=== PATIENT | male | born 1970 | race American Indian/Alaskan Native ===

== ENCOUNTER 2016-09-04 07:45 | Inpatient (IN) | payer OTHER ==
[2016-09-04] MEDS ORDERED: MAGNESIUM SULFATE 2GM/50ML 2 GM/50 ML BAG IV ONE ×2 (07:58→08:00)
[2016-09-04] MEDS ORDERED: PROVENTIL IH ONE ×3 (08:12→11:21)
[2016-09-04 08:35] LABS: Basophils % (Auto) 0.7 % (0.0-1.8); Eosinophils % (Auto) 5.9 % (0.0-4.3); Hematocrit 41.4 % (35.5-45.6); Hemoglobin 14.3 gm/dl (11.8-15.2); Mean Corpuscular HGB Conc 35 % (32-34); Mean Corpuscular Hemoglobin 33 pg (28-32); Mean Corpuscular Volume 96 fl (84-94); Platelet Count 168 K/mm3 (140-440); Red Blood Count 4.33 M/mm3 (3.65-5.03); Red Cell Distribution Width 15.4 % (13.2-15.2); White Blood Count 4.7 K/mm3 (4.5-11.0)
--- NOTE | 2016-09-04 08:41 | XRay Report ---
ROUTINE CHEST, TWO VIEWS: HISTORY: Shortness of breath. The trachea, heart, mediastinal contour, lung wen and bony thorax are unremarkable. IMPRESSION: Unremarkable chest x-ray.
[2016-09-04 08:55] LABS: Anion Gap 17 mmol/L; BUN/Creatinine Ratio 14.44; Blood Urea Nitrogen 13 mg/dL (9-20); Calcium 9.2 mg/dL (8.4-10.2); Carbon Dioxide 28 mmol/L (22-30); Chloride 96.5 mmol/L (98-107); Glucose 107 mg/dL (75-100); Potassium 4.3 mmol/L (3.6-5.0); Sodium 137 mmol/L (137-145)
--- NOTE | 2016-09-04 09:10 | Emergency Department Report ---
ED Shortness of Breath HPI - General Chief Complaint: Adult Asthma Stated Complaint: REX Time Seen by Provider: 09/04/16 08:49 Source: patient, EMS Mode of arrival: Stretcher Limitations: No Limitations - History of Present Illness Initial Comments: 46-year-old male presents to the emergency department via EMS complaining of difficulty breathing. Patient states he's been having shortness of breath for the past 2 days it has progressively gotten worse. Patient states he has been using his albuterol nebulizer with no relief. Patient states that he normally takes 20 mg of prednisone daily. He states he increased this to 40 mg this morning. Patient was given 1 nebulizer treatment by EMS and IV Solu-Medrol. Patient is also complaining of left sided chest pain. This pain started this morning. Patient describes an achy pain that does not radiate. This pain is worse with deep inspiration. Patient reports a history of asthma and endotracheal intubation secondary to asthma. This intubation occurred at the age of 17. He has had multiple inpatient admissions due to his asthma. There are no other complaints. MD Complaint: "asthma attack" -: Gradual, days(s) (2) Severity: moderate Quality: aching Consistency: constant Improves With: nothing Worsens With: inspiration Known History Of: asthma Associated Symptoms: chest pain, pain with inspiration Treatments Prior to Arrival: bronchodilator, other (IV steroids) - Related Data Home Oxygen Therapy: No Home Medications Medication Instructions Recorded Confirmed Last Taken Albuterol Sulfate [Ventolin HFA] 2 puff IH Q4H PRN 09/04/16 09/04/16 Unknown predniSONE [Deltasone] 20 mg PO QDAY 09/04/16 09/04/16 Unknown Allergies Allergy/AdvReac Type Severity Reaction Status Date / Time ciprofloxacin [From Cipro] Allergy Hives Verified 09/04/16 08:09 ciprofloxacin HCl Allergy Hives Verified 09/04/16 08:09 [From Cipro] ED Review of Systems ROS: Stated complaint: REX Other details as noted in HPI Comment: All other systems reviewed and negative Respiratory: shortness of breath, wheezing Cardiovascular: chest pain ED Past Medical Hx - Past Medical History Previous Medical History?: Yes Hx Asthma: Yes (hx intubation) - Surgical History Past Surgical History?: No - Family History Family history: no significant - Social History Smoking Status: Never Smoker Substance Use Type: Alcohol - Medications Home Medications: Home Medications Medication Instructions Recorded Confirmed Last Taken Type Albuterol Sulfate [Ventolin HFA] 2 puff IH Q4H PRN 09/04/16 09/04/16 Unknown History predniSONE [Deltasone] 20 mg PO QDAY 09/04/16 09/04/16 Unknown History ED Physical Exam - General Limitations: No Limitations General appearance: alert, in no apparent distress - Head Head exam: Present: atraumatic, normocephalic - Eye Eye exam: Present: normal appearance, PERRL, EOMI - ENT ENT exam: Present: normal exam, normal orophraynx, mucous membranes moist - Neck Neck exam: Present: normal inspection, full ROM. Absent: tenderness - Respiratory Respiratory exam: Present: wheezes (moderate diffuse posterior bilateral), chest wall tenderness (mild tenderness to palpation of the left lower anterior lateral chest wall). Absent: respiratory distress - Cardiovascular Cardiovascular Exam: Present: regular rate, normal rhythm, normal heart sounds - GI/Abdominal GI/Abdominal exam: Present: soft, normal bowel sounds. Absent: distended, tenderness - Extremities Exam Extremities exam: Present: normal inspection, full ROM. Absent: tenderness - Back Exam Back exam: Present: normal inspection, full ROM. Absent: tenderness - Neurological Exam Neurological exam: Present: alert, oriented X3. Absent: motor sensory deficit - Skin Skin exam: Present: warm, dry, intact ED Course Vital Signs 09/04/16 09/04/16 09/04/16 07:50 07:54 08:00 Temperature 98.4 F Pulse Rate 74 74 79 Pulse Rate [ Anterior Bilateral Throughout] Pulse Rate [ Bilateral Throughout] Respiratory 20 16 22 Rate Respiratory Rate [Anterior Bilateral Throughout] Respiratory Rate [Bilateral Throughout] Blood Pressure 153/95 153/99 O2 Sat by Pulse 95 94 95 Oximetry 09/04/16 09/04/16 09/04/16 08:05 08:16 08:50 Temperature Pulse Rate Pulse Rate [ 756 H Anterior Bilateral Throughout] Pulse Rate [ 68 Bilateral Throughout] Respiratory 20 Rate Respiratory 20 Rate [Anterior Bilateral Throughout] Respiratory 18 Rate [Bilateral Throughout] Blood Pressure O2 Sat by Pulse 95 Oximetry 09/04/16 09/04/16 09/04/16 09:00 09:10 10:00 Temperature Pulse Rate 71 Pulse Rate [ Anterior Bilateral Throughout] Pulse Rate [ 82 Bilateral Throughout] Respiratory 14 Rate Respiratory Rate [Anterior Bilateral Throughout] Respiratory 18 Rate [Bilateral Throughout] Blood Pressure 150/99 159/98 O2 Sat by Pulse 97 95 Oximetry 09/04/16 09/04/16 09/04/16 11:00 11:33 11:43 Temperature Pulse Rate Pulse Rate [ Anterior Bilateral Throughout] Pulse Rate [ 91 H 90 Bilateral Throughout] Respiratory Rate Respiratory Rate [Anterior Bilateral Throughout] Respiratory 18 18 Rate [Bilateral Throughout] Blood Pressure 142/91 O2 Sat by Pulse 96 Oximetry - Reevaluation(s) Reevaluation #1: 09/04/16 13:03 After a total of 25 mg of albuterol and 2 g of magnesium, the patient does have improved air movement on lung auscultation. However, he still has significant wheezing. Lab and imaging results reviewed and discussed with the patient. Patient is to be admitted by the hospitalist. ED Medical Decision Making - Lab Data Result diagrams: 09/04/16 08:25 09/04/16 08:25 - EKG Data -: EKG Interpreted by Me EKG shows normal: sinus rhythm, intervals, ST-T waves Rate: normal - EKG Data When compared to previous EKG there are: previous EKG unavailable Interpretation: LVH, other (LAFB) - Radiology Data Radiology results: report reviewed Chest x-ray shows no acute cardiopulmonary abnormality. - Differential Diagnosis asthma exacerbation Critical care attestation.: If time is entered above; I have spent that time in minutes in the direct care of this critically ill patient, excluding procedure time. ED Disposition Clinical Impression: Asthma with acute exacerbation Qualifiers: Asthma severity: severe persistent Qualified Code(s): J45.51 - Severe persistent asthma with (acute) exacerbation Disposition: OP ADMITTED IP TO THIS HOSP Is pt being admited?: Yes Condition: Stable Referrals: PRIMARY CARE, [Primary Care Provider] - 3-5 Days Time of Disposition: 13:04
--- NOTE | 2016-09-04 13:08 | Admit Criteria Form ---
Admission Criteria Documentation: ASTHMA Clinical Indications for Admission to Inpatient Care (Place 'X' for any and all applicable criteria): Admission is indicated for ANY ONE of the following (1)(2)(3)(4)(5): [ ]I. Absent or markedly diminished breath sounds (silent chest) [ ]II. Oxygen saturation < 92% [ ]III. PaCO2 = / > 42 mm Hg (5.6 kPa) [ ]IV. Peak expiratory flow rate < 40% of predicted or personal best after treatment. [ ]V. Peak expiratory flow rate < 33% of predicted or personal before after treatment [ ]. Change in mental status [ ]VII. Ventilatory support required [ ]VIII. PaO2 < 60 mm Hg (8.0 kPa) [ ]IX. Cyanosis [ ]X. Cardiac dysrhythmia (e.g., bradycardia) [ ]XI. Hemodynamic instability [ ]XII. Radiographic evidence of complication requiring inpatient treatment (e.g., pneumonia, pneumothorax) [X ]XIII. Inpatient admission required rather than observation care (also use Asthma: Observation Care guideline as appropriate) because of ANY ONE of the following: [ X]a) Respiratory finding that is severe or persistent (eg, dyspnea, tachypnea, accessory muscle use) [ ]b) Airflow measurements less than 60% of predicted or personal best that persist (e.g., over 24 hours) or worsen despite treatments [ ]c) Supplemental oxygen or respiratory treatments for over 24 hours that are performable only in acute inpatient setting [ ]d) Other condition, treatment or monitoring requiring inpatient admission. Extended stay beyond goal length of stay may be needed for (26)(27)(28): [ ]a) Severe respiratory failure (23) (29) (30) [ ]b) Secondary causes and complications (25) [ ]c) Status asthmaticus [ ]d) Chronic obstructive asthma [ ]e) Older patients (29) [ ]f) Slow resolution [ ]g) Clinically significant exacerbation of comorbidities (eg, santiago. heart failure, atrial fibrillation) The original [employer] content created by [employer] has been revised. The portions of the content which have been revised are identified through the use of italic text or in bold, and [employer] has neither reviewed nor approved the modified material. All other unmodified content is copyright [employer] Please see references footnoted in the original [facility] edition 2016 Admission Criteria Met: Yes
[2016-09-04] MEDS ORDERED: DUONEB 0.5 MG-3 MG/3 ML SOLN IH PRN (14:44)
[2016-09-04] MEDS ORDERED: TYLENOL PO PRN (14:44)
--- NOTE | 2016-09-04 14:44 | History and Physical Report ---
History of Present Illness Chief complaint: I cant breathe History of present illness: 46 YO Male with Asthma, presents to ED for evaluation. Pt states that he has been experiencing shortness of breath for the past 2 days, with worsening symptoms over the past 24 hours. Pt Patient states he has been using his albuterol nebulizer, and oral steroids with no relief. Patient is also complaining of chest discomfort associated with deep breathing. Pt denies fever , chills, CP, Palpitations, NVD, hemoptysis, prolonged travel/immobility, individual/family history of DVT/PE, or recent ill contacts. Past History Past Medical History: other (asthma) Past Surgical History: No surgical history, Other (reviewed) Social history: single, Lives alone. denies: smoking, alcohol abuse, prescription drug abuse Family history: hypertension Medications and Allergies Allergies Allergy/AdvReac Type Severity Reaction Status Date / Time ciprofloxacin [From Cipro] Allergy Hives Verified 09/04/16 08:09 ciprofloxacin HCl Allergy Hives Verified 09/04/16 08:09 [From Cipro] Home Medications Medication Instructions Recorded Confirmed Last Taken Type Albuterol Sulfate [Ventolin HFA] 2 puff IH Q4H PRN 09/04/16 09/04/16 Unknown History predniSONE [Deltasone] 20 mg PO QDAY 09/04/16 09/04/16 Unknown History Review of Systems All systems: negative Respiratory: shortness of breath Exam - Constitutional Vitals: Temp Pulse Resp BP Pulse Ox 98.4 F 87 16 140/104 96 09/04/16 07:50 09/04/16 13:30 09/04/16 13:30 09/04/16 13:00 09/04/16 13:00 General appearance: Present: no acute distress, well-nourished - EENT Eyes: Present: PERRL ENT: hearing intact, clear oral mucosa - Neck Neck: Present: supple, normal ROM - Respiratory Respiratory effort: normal Respiratory: bilateral: diminished - Cardiovascular Heart Sounds: Present: S1 & S2. Absent: rub, click - Extremities Extremities: pulses symmetrical, No edema Peripheral Pulses: within normal limits - Abdominal General gastrointestinal: Present: soft, non-tender, non-distended, normal bowel sounds Male genitourinary: Present: normal - Integumentary Integumentary: Present: clear, warm, dry - Musculoskeletal Musculoskeletal: gait normal, strength equal bilaterally - Psychiatric Psychiatric: appropriate mood/affect, intact judgment & insight - Neurologic Neurologic: CNII-XII intact, moves all extremities Results - Labs CBC & Chem 7: 09/04/16 08:25 09/04/16 08:25 Labs: Abnormal lab results 09/04/16 09/04/16 Range/Units 08:25 08:25 MCV 96 H (84-94) fl MCH 33 H (28-32) pg MCHC 35 H (32-34) % RDW 15.4 H (13.2-15.2) % Eos % (Auto) 5.9 H (0.0-4.3) % Lymph # 0.9 L (1.2-5.4) K/mm3 Chloride 96.5 L (98-107) mmol/L Glucose 107 H (75-100) mg/dL Assessment and Plan - Patient Problems (1) Acute respiratory failure with hypoxemia Current Visit: Yes Status: Acute Plan to address problem: Supplemental oxygen, nebs, pulmonary toilet, incintive spirometry (2) Asthma with acute exacerbation Current Visit: Yes Status: Acute Qualifiers: Asthma severity: severe persistent Qualified Code(s): J45.51 - Severe persistent asthma with (acute) exacerbation Plan to address problem: ASthma protocol: supplemental oxygen, nebs, supportive care, NIPPV as clinically indicated, steroids, serial lung exam, pulse oximetry (3) Acute bronchitis Current Visit: Yes Status: Acute Qualifiers: Bronchitis organism: B Plan to address problem: IV steroids, supportive care, serial physical exam. (4) DVT prophylaxis Current Visit: Yes Status: Acute
[2016-09-04] MEDS ORDERED: PROVENTIL IH PRN (14:55)
[2016-09-04] MEDS ORDERED: ZITHROMAX 500 MG in NACL 0.9% 250ML 250 ML IV ONE (16:00)
--- NOTE | 2016-09-05 11:47 | Progress Note ---
Assessment and Plan Assessment and plan: Patient is a 46-year-old man with a history of severe refractory asthma on 20 mg oral steroids/day who presents with worsening shortness of breath about not responding to outpatient therapy. He has been intubated for asthma exacerbation in the past. - Severe refractory asthma, acute on chronic: Consulted pulmonology, add inhaled glucocorticoids - Acute bronchitis related to above History Interval history: Patient seen and examined. Follow up on shortness of breath which is still present. He still feels tight with breathing with ESTEVES. He has severe daily asthma attack not responding to his home medication. He's on 20 mg a day of prednisone with albuterol inhaler. He has been intubated for asthma in the past. He also underwent GI procedure in [place] to evaluate GERD related asthma. Patient is visiting from [place]. 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 Overnight uneventful. No cp, n/v or severe headaches. Imaging, old records, testing, labs, nursing notes reviewed. Plan discussed with patient. Hospitalist Physical - Physical exam Narrative exam: GEN: Ill appearing mild increase use of accessory muscle, not on oxygen, pulse ox 98% room air, NAD, AWAKE, ALERT, ORIENTATED 3 HEENT: NCAT, PERRL, EOMI, OP CLEAR NECK: SUPPLE, NO THYROMEGALY, NO JVD, NO LAD CVS: RRR, NORMAL S1S2 LUNGS/CHEST: Diffuse Bilateral coarse rhonchi, diminished breath sounds bilaterally, NORMAL CHEST EXPANSION B, reduced AIR ENTRY B ABD: SOFT NTND, GBS, NO REBOUND OR GUARDING EXT/SKIN: NO SIGNIFICANT EDEMA OR RASH MSK: FROM X 4 EXTREMITIES NEURO: CN 2-12 GROSSLY INTACT, NO new FOCAL DEFICITS PSY: CALM - Constitutional Vitals: Temp Pulse Resp BP Pulse Ox 98.4 F 81 16 138/90 95 09/05/16 07:16 09/05/16 07:16 09/05/16 07:16 09/05/16 07:16 09/05/16 07:58 General appearance: Present: no acute distress, well-nourished Results - Labs CBC & Chem 7: 09/04/16 08:25 09/04/16 08:25 Labs: Laboratory Last Values WBC 4.7 K/mm3 (4.5-11.0) 09/04/16 08:25 RBC 4.33 M/mm3 (3.65-5.03) 09/04/16 08:25 Hgb 14.3 gm/dl (11.8-15.2) 09/04/16 08:25 Hct 41.4 % (35.5-45.6) 09/04/16 08:25 MCV 96 fl (84-94) H 09/04/16 08:25 MCH 33 pg (28-32) H 09/04/16 08:25 MCHC 35 % (32-34) H 09/04/16 08:25 RDW 15.4 % (13.2-15.2) H 09/04/16 08:25 Plt Count 168 K/mm3 (140-440) 09/04/16 08:25 Lymph % (Auto) 19.7 % (13.4-35.0) 09/04/16 08:25 [place] % (Auto) 7.0 % (0.0-7.3) 09/04/16 08:25 Eos % (Auto) 5.9 % (0.0-4.3) H 09/04/16 08:25 Baso % (Auto) 0.7 % (0.0-1.8) 09/04/16 08:25 Lymph # 0.9 K/mm3 (1.2-5.4) L 09/04/16 08:25 [place] # 0.3 K/mm3 (0.0-0.8) 09/04/16 08:25 Eos # 0.3 K/mm3 (0.0-0.4) 09/04/16 08:25 Baso # 0.0 K/mm3 (0.0-0.1) 09/04/16 08:25 Seg Neutrophils % 66.7 % (40.0-70.0) 09/04/16 08:25 Seg Neutrophils # 3.1 K/mm3 (1.8-7.7) 09/04/16 08:25 Sodium 137 mmol/L (137-145) 09/04/16 08:25 Potassium 4.3 mmol/L (3.6-5.0) 09/04/16 08:25 Chloride 96.5 mmol/L (98-107) L 09/04/16 08:25 Carbon Dioxide 28 mmol/L (22-30) 09/04/16 08:25 Anion Gap 17 mmol/L 09/04/16 08:25 BUN 13 mg/dL (9-20) 09/04/16 08:25 Creatinine 0.9 mg/dL (0.8-1.5) 09/04/16 08:25 Estimated GFR > 60 ml/min 09/04/16 08:25 BUN/Creatinine Ratio 14.44 % 09/04/16 08:25 Glucose 107 mg/dL (75-100) H 09/04/16 08:25 Calcium 9.2 mg/dL (8.4-10.2) 09/04/16 08:25 Troponin T < 0.010 ng/mL (0.00-0.029) 09/04/16 08:25 - Imaging and Cardiology Chest x-ray: report reviewed
[2016-09-05] MEDS: DUONEB 0.5 MG-3 MG/3 ML SOLN IH SCH ×3 (13:00→21:12)
[2016-09-05] MEDS: ROCEPHIN/NS 1 GM/50 ML 1 GM/50 ML BAG IV SCH (14:47)
[2016-09-05] MEDS: BROVANA NEBU IH SCH (21:13)
[2016-09-05] MEDS: PULMICORT IH SCH (21:13)
[2016-09-05] MEDS: PROTONIX PO SCH (22:58)
[2016-09-06] MEDS: PERCOCET 5/325 PO PRN (02:56)
[2016-09-06] MEDS: BROVANA NEBU IH SCH ×2 (07:48→19:47)
[2016-09-06] MEDS: DUONEB 0.5 MG-3 MG/3 ML SOLN IH SCH ×4 (07:48→19:51)
[2016-09-06] MEDS: PULMICORT IH SCH ×2 (07:48→19:47)
--- NOTE | 2016-09-06 08:43 | Progress Note ---
Assessment and Plan Assessment and plan: 1. Severe refractory acute asthma exacerbation. Continue bronchodilators, inhaled glucocorticoids and steroids. Pulmonary consultation pending. 2. Acute bronchitis. Continue IV antibiotics. 3. GERD. Continue Protonix twice a day. History Interval history: 46-year-old male admitted with acute asthma exacerbation and acute bronchitis. No new issues overnight. Hospitalist Physical - Constitutional Vitals: Temp Pulse Resp BP Pulse Ox 97.5 F L 76 18 138/92 97 09/06/16 08:08 09/06/16 08:08 09/06/16 08:08 09/06/16 08:08 09/06/16 08:08 General appearance: Present: no acute distress, well-nourished - EENT Eyes: Present: PERRL, EOM intact ENT: hearing intact, clear oral mucosa, dentition normal - Neck Neck: Present: supple, normal ROM - Respiratory Respiratory effort: normal Respiratory: bilateral: diminished, rhonchi, wheezing - Cardiovascular Rhythm: regular Heart Sounds: Present: S1 & S2. Absent: gallop, rub - Extremities Extremities: no ischemia, No edema, Full ROM - Abdominal General gastrointestinal: soft, non-tender, non-distended, normal bowel sounds - Integumentary Integumentary: Present: clear, warm, dry - Neurologic Neurologic: CNII-XII intact, moves all extremities Results - Labs CBC & Chem 7: 09/04/16 08:25 09/04/16 08:25 Labs: Laboratory Last Values WBC 4.7 K/mm3 (4.5-11.0) 09/04/16 08:25 RBC 4.33 M/mm3 (3.65-5.03) 09/04/16 08:25 Hgb 14.3 gm/dl (11.8-15.2) 09/04/16 08:25 Hct 41.4 % (35.5-45.6) 09/04/16 08:25 MCV 96 fl (84-94) H 09/04/16 08:25 MCH 33 pg (28-32) H 09/04/16 08:25 MCHC 35 % (32-34) H 09/04/16 08:25 RDW 15.4 % (13.2-15.2) H 09/04/16 08:25 Plt Count 168 K/mm3 (140-440) 09/04/16 08:25 Lymph % (Auto) 19.7 % (13.4-35.0) 09/04/16 08:25 [place] % (Auto) 7.0 % (0.0-7.3) 09/04/16 08:25 Eos % (Auto) 5.9 % (0.0-4.3) H 09/04/16 08:25 Baso % (Auto) 0.7 % (0.0-1.8) 09/04/16 08:25 Lymph # 0.9 K/mm3 (1.2-5.4) L 09/04/16 08:25 [place] # 0.3 K/mm3 (0.0-0.8) 09/04/16 08:25 Eos # 0.3 K/mm3 (0.0-0.4) 09/04/16 08:25 Baso # 0.0 K/mm3 (0.0-0.1) 09/04/16 08:25 Seg Neutrophils % 66.7 % (40.0-70.0) 09/04/16 08:25 Seg Neutrophils # 3.1 K/mm3 (1.8-7.7) 09/04/16 08:25 Sodium 137 mmol/L (137-145) 09/04/16 08:25 Potassium 4.3 mmol/L (3.6-5.0) 09/04/16 08:25 Chloride 96.5 mmol/L (98-107) L 09/04/16 08:25 Carbon Dioxide 28 mmol/L (22-30) 09/04/16 08:25 Anion Gap 17 mmol/L 09/04/16 08:25 BUN 13 mg/dL (9-20) 09/04/16 08:25 Creatinine 0.9 mg/dL (0.8-1.5) 09/04/16 08:25 Estimated GFR > 60 ml/min 09/04/16 08:25 BUN/Creatinine Ratio 14.44 % 09/04/16 08:25 Glucose 107 mg/dL (75-100) H 09/04/16 08:25 Calcium 9.2 mg/dL (8.4-10.2) 09/04/16 08:25 Troponin T < 0.010 ng/mL (0.00-0.029) 09/04/16 08:25
[2016-09-06] MEDS: PROTONIX PO SCH ×2 (09:09→22:53)
[2016-09-06] MEDS: ROCEPHIN/NS 1 GM/50 ML 1 GM/50 ML BAG IV SCH (09:10)
--- NOTE | 2016-09-06 14:07 | Consultation ---
History of Present Illness Consult date: 09/06/16 Requesting physician: LUIS ANTONIO HOWELL Reason for consult: asthma Past History Past Medical History: other (asthma) Past Surgical History: No surgical history, Other (reviewed) Social history: single, Lives alone. denies: smoking, alcohol abuse, prescription drug abuse Family history: hypertension Medications and Allergies Allergies Allergy/AdvReac Type Severity Reaction Status Date / Time ciprofloxacin [From Cipro] Allergy Hives Verified 09/04/16 08:09 ciprofloxacin HCl Allergy Hives Verified 09/04/16 08:09 [From Cipro] Home Medications Medication Instructions Recorded Confirmed Last Taken Type Albuterol Sulfate [Ventolin HFA] 2 puff IH Q4H PRN 09/04/16 09/04/16 Unknown History predniSONE [Deltasone] 20 mg PO QDAY 09/04/16 09/04/16 Unknown History Active Meds: Active Medications Acetaminophen (Tylenol) 650 mg PO Q4H PRN PRN Reason: Pain MILD(1-3)/Fever >100.5/RASHID Albuterol (Proventil) 2.5 mg IH Q4HRT PRN PRN Reason: Shortness Of Breath Last Admin: 09/05/16 04:27 Dose: 2.5 mg Albuterol/Ipratropium (Duoneb 0.5 Mg-3 Mg/3 Ml Soln) 1 ampul IH QIDRT [facility] Last Admin: 09/06/16 12:18 Dose: 1 ampul Arformoterol Tartrate (Brovana Nebu) 15 mcg IH Q12HRT [facility] Last Admin: 09/06/16 07:48 Dose: Not Given Budesonide (Pulmicort) 0.5 mg IH Q12HRT [facility] Last Admin: 09/06/16 07:48 Dose: 0.5 mg Ceftriaxone Sodium (Rocephin/Ns 1 Gm/50 Ml) 1 gm in 50 mls @ 100 mls/hr IV Q24HR [facility] PRN Reason: Protocol Last Admin: 09/06/16 09:10 Dose: 100 mls/hr Methylprednisolone Sodium Succinate (Solu-Medrol) 40 mg IV Q12H [facility] Last Admin: 09/06/16 04:18 Dose: 40 mg Oxycodone/Acetaminophen (Percocet 5/325) 1 tab PO Q4H PRN PRN Reason: Pain, Moderate (4-6) Last Admin: 09/06/16 02:56 Dose: 1 tab Pantoprazole Sodium (Protonix) 40 mg PO BID [facility] Last Admin: 09/06/16 09:09 Dose: 40 mg Physical Examination Vital signs: Vital Signs Temp Pulse Resp BP Pulse Ox 98.4 F 74 20 153/95 95 09/04/16 07:50 09/04/16 07:50 09/04/16 07:50 09/04/16 07:50 09/04/16 07:50 Results - Laboratory Findings CBC and BMP: 09/04/16 08:25 09/04/16 08:25 Assessment and Plan 46 y/o male with severe persistent asthma 1. Increase steroids to 60q6 2. Added H2 smith at night 3. Continue pulmicort and brovana 4. Restart singulair 5. Would be a good candidate for Xolair but has no funding.
[2016-09-06] MEDS: PEPCID PO SCH (22:53)
[2016-09-06] MEDS: SINGULAIR PO SCH (22:53)
[2016-09-06] MEDS: MUCINEX ER PO SCH (22:56)
[2016-09-07 05:17] LABS: Hemoglobin 14.2 gm/dl (11.8-15.2); Mean Corpuscular HGB Conc 34 % (32-34); Mean Corpuscular Hemoglobin 32 pg (28-32); Mean Corpuscular Volume 96 fl (84-94); Platelet Count 157 K/mm3 (140-440); Red Blood Count 4.37 M/mm3 (3.65-5.03); Red Cell Distribution Width 15.2 % (13.2-15.2); White Blood Count 8.5 K/mm3 (4.5-11.0)
[2016-09-07 05:20] LABS: Anion Gap 20 mmol/L; BUN/Creatinine Ratio 17.77; Blood Urea Nitrogen 16 mg/dL (9-20); Calcium 8.9 mg/dL (8.4-10.2); Carbon Dioxide 23 mmol/L (22-30); Chloride 98.5 mmol/L (98-107); Glucose 139 mg/dL (75-100); Potassium 4.2 mmol/L (3.6-5.0); Sodium 137 mmol/L (137-145)
[2016-09-07] MEDS: BROVANA NEBU IH SCH ×2 (08:15→20:11)
[2016-09-07] MEDS: DUONEB 0.5 MG-3 MG/3 ML SOLN IH SCH ×4 (08:15→20:11)
[2016-09-07] MEDS: PULMICORT IH SCH ×2 (08:15→20:11)
--- NOTE | 2016-09-07 09:11 | Progress Note ---
Assessment and Plan Assessment and plan: 1. Severe refractory acute asthma exacerbation. Continue IV steroids, H2 smith, Pulmicort, Brovana and Singulair. Pulmonary following. 2. Acute bronchitis. Continue IV antibiotics. 3. GERD. Continue Protonix twice a day. History Interval history: 46-year-old male admitted with acute asthma exacerbation and acute bronchitis. No new issues overnight. Hospitalist Physical - Constitutional Vitals: Temp Pulse Resp BP Pulse Ox 98.1 F 76 18 135/81 98 09/07/16 07:41 09/07/16 07:41 09/07/16 08:15 09/07/16 07:41 09/07/16 07:41 General appearance: Present: no acute distress, well-nourished - EENT Eyes: Present: PERRL, EOM intact ENT: hearing intact, clear oral mucosa, dentition normal - Neck Neck: Present: supple, normal ROM - Respiratory Respiratory effort: normal Respiratory: bilateral: diminished, wheezing - Cardiovascular Rhythm: regular Heart Sounds: Present: S1 & S2. Absent: gallop, rub - Extremities Extremities: no ischemia, No edema, Full ROM - Abdominal General gastrointestinal: soft, non-tender, non-distended, normal bowel sounds - Integumentary Integumentary: Present: clear, warm, dry - Neurologic Neurologic: CNII-XII intact, moves all extremities Results - Labs CBC & Chem 7: 09/07/16 04:15 09/07/16 04:15 Labs: Laboratory Last Values WBC 8.5 K/mm3 (4.5-11.0) 09/07/16 04:15 RBC 4.37 M/mm3 (3.65-5.03) 09/07/16 04:15 Hgb 14.2 gm/dl (11.8-15.2) 09/07/16 04:15 Hct 42.0 % (35.5-45.6) 09/07/16 04:15 MCV 96 fl (84-94) H 09/07/16 04:15 MCH 32 pg (28-32) 09/07/16 04:15 MCHC 34 % (32-34) 09/07/16 04:15 RDW 15.2 % (13.2-15.2) 09/07/16 04:15 Plt Count 157 K/mm3 (140-440) 09/07/16 04:15 Lymph % (Auto) 7.5 % (13.4-35.0) L 09/07/16 04:15 [place] % (Auto) 3.0 % (0.0-7.3) 09/07/16 04:15 Eos % (Auto) 0.0 % (0.0-4.3) 09/07/16 04:15 Baso % (Auto) 0.0 % (0.0-1.8) 09/07/16 04:15 Lymph # 0.6 K/mm3 (1.2-5.4) L 09/07/16 04:15 [place] # 0.3 K/mm3 (0.0-0.8) 09/07/16 04:15 Eos # 0.0 K/mm3 (0.0-0.4) 09/07/16 04:15 Baso # 0.0 K/mm3 (0.0-0.1) 09/07/16 04:15 Seg Neutrophils % 89.5 % (40.0-70.0) H 09/07/16 04:15 Seg Neutrophils # 7.6 K/mm3 (1.8-7.7) 09/07/16 04:15 Sodium 137 mmol/L (137-145) 09/07/16 04:15 Potassium 4.2 mmol/L (3.6-5.0) 09/07/16 04:15 Chloride 98.5 mmol/L (98-107) 09/07/16 04:15 Carbon Dioxide 23 mmol/L (22-30) 09/07/16 04:15 Anion Gap 20 mmol/L 09/07/16 04:15 BUN 16 mg/dL (9-20) 09/07/16 04:15 Creatinine 0.9 mg/dL (0.8-1.5) 09/07/16 04:15 Estimated GFR > 60 ml/min 09/07/16 04:15 BUN/Creatinine Ratio 17.77 % 09/07/16 04:15 Glucose 139 mg/dL (75-100) H 09/07/16 04:15 Calcium 8.9 mg/dL (8.4-10.2) 09/07/16 04:15 Troponin T < 0.010 ng/mL (0.00-0.029) 09/04/16 08:25
[2016-09-07] MEDS: ROCEPHIN/NS 1 GM/50 ML 1 GM/50 ML BAG IV SCH (09:25)
[2016-09-07] MEDS: PROTONIX PO SCH ×2 (09:26→22:54)
[2016-09-07] MEDS: MUCINEX ER PO SCH ×2 (09:26→22:54)
[2016-09-07] MEDS: PERCOCET 5/325 PO PRN (20:22)
[2016-09-07] MEDS: SINGULAIR PO SCH (22:54)
[2016-09-07] MEDS: PEPCID PO SCH (22:54)
[2016-09-08] MEDS: PULMICORT IH SCH ×2 (07:19→19:38)
[2016-09-08] MEDS: BROVANA NEBU IH SCH ×2 (07:19→19:38)
[2016-09-08] MEDS: DUONEB 0.5 MG-3 MG/3 ML SOLN IH SCH ×4 (07:19→19:38)
--- NOTE | 2016-09-08 09:32 | Progress Note ---
Assessment and Plan Assessment and plan: 1. Severe refractory acute asthma exacerbation. Continue IV steroids, H2 smith, Pulmicort, Brovana and Singulair. Pulmonary following. 2. Acute bronchitis. Continue IV antibiotics. 3. GERD. Continue Protonix twice a day. History Interval history: 46-year-old male admitted with acute asthma exacerbation and acute bronchitis. No new issues overnight. Hospitalist Physical - Constitutional Vitals: Temp Pulse Resp BP Pulse Ox 98.6 F 100 H 16 149/84 100 09/08/16 00:00 09/08/16 07:33 09/08/16 07:33 09/08/16 00:00 09/08/16 07:35 General appearance: Present: no acute distress, well-nourished - EENT Eyes: Present: PERRL, EOM intact ENT: hearing intact, clear oral mucosa, dentition normal - Neck Neck: Present: supple, normal ROM - Respiratory Respiratory effort: normal Respiratory: bilateral: diminished, wheezing (inspiratory and expiratory) - Cardiovascular Rhythm: regular Heart Sounds: Present: S1 & S2. Absent: gallop, rub - Extremities Extremities: no ischemia, No edema, Full ROM - Abdominal General gastrointestinal: soft, non-tender, non-distended, normal bowel sounds - Integumentary Integumentary: Present: clear, warm, dry - Neurologic Neurologic: CNII-XII intact, moves all extremities Results - Labs CBC & Chem 7: 09/07/16 04:15 09/07/16 04:15 Labs: Laboratory Last Values WBC 8.5 K/mm3 (4.5-11.0) 09/07/16 04:15 RBC 4.37 M/mm3 (3.65-5.03) 09/07/16 04:15 Hgb 14.2 gm/dl (11.8-15.2) 09/07/16 04:15 Hct 42.0 % (35.5-45.6) 09/07/16 04:15 MCV 96 fl (84-94) H 09/07/16 04:15 MCH 32 pg (28-32) 09/07/16 04:15 MCHC 34 % (32-34) 09/07/16 04:15 RDW 15.2 % (13.2-15.2) 09/07/16 04:15 Plt Count 157 K/mm3 (140-440) 09/07/16 04:15 Lymph % (Auto) 7.5 % (13.4-35.0) L 09/07/16 04:15 [place] % (Auto) 3.0 % (0.0-7.3) 09/07/16 04:15 Eos % (Auto) 0.0 % (0.0-4.3) 09/07/16 04:15 Baso % (Auto) 0.0 % (0.0-1.8) 09/07/16 04:15 Lymph # 0.6 K/mm3 (1.2-5.4) L 09/07/16 04:15 [place] # 0.3 K/mm3 (0.0-0.8) 09/07/16 04:15 Eos # 0.0 K/mm3 (0.0-0.4) 09/07/16 04:15 Baso # 0.0 K/mm3 (0.0-0.1) 09/07/16 04:15 Seg Neutrophils % 89.5 % (40.0-70.0) H 09/07/16 04:15 Seg Neutrophils # 7.6 K/mm3 (1.8-7.7) 09/07/16 04:15 Sodium 137 mmol/L (137-145) 09/07/16 04:15 Potassium 4.2 mmol/L (3.6-5.0) 09/07/16 04:15 Chloride 98.5 mmol/L (98-107) 09/07/16 04:15 Carbon Dioxide 23 mmol/L (22-30) 09/07/16 04:15 Anion Gap 20 mmol/L 09/07/16 04:15 BUN 16 mg/dL (9-20) 09/07/16 04:15 Creatinine 0.9 mg/dL (0.8-1.5) 09/07/16 04:15 Estimated GFR > 60 ml/min 09/07/16 04:15 BUN/Creatinine Ratio 17.77 % 09/07/16 04:15 Glucose 139 mg/dL (75-100) H 09/07/16 04:15 Calcium 8.9 mg/dL (8.4-10.2) 09/07/16 04:15 Troponin T < 0.010 ng/mL (0.00-0.029) 09/04/16 08:25
[2016-09-08] MEDS: PROTONIX PO SCH ×2 (11:10→21:53)
[2016-09-08] MEDS: PERCOCET 5/325 PO PRN ×2 (11:11→21:53)
[2016-09-08] MEDS: ROCEPHIN/NS 1 GM/50 ML 1 GM/50 ML BAG IV SCH (11:11)
[2016-09-08] MEDS: MUCINEX ER PO SCH ×2 (11:11→21:53)
[2016-09-08] MEDS ORDERED: PROVENTIL IH PRN (11:13)
--- NOTE | 2016-09-08 15:24 | Progress Note ---
Assessment and Plan Imp: 1. Severe persistent asthma with acute exac. 2. Acute respiratory distress, better 3. Allergic rhinitis 4. GERD 5. Acute bronchitis Rec: 1. Cont. ABX 2. Taper Solumedrol 3. Pulmicort/Brovana/Singulair 4. Add Claritin 5. PPI 6. Outpatient PFTs needed Plan of care reviewed w/ pt., he understands/agrees Subjective Date of service: 09/08/16 Principal diagnosis: Asthma exac. Interval history: Still with SOB above baseline, constant wheezing. + Cough, no sputum. No new complaints. Active Medications Acetaminophen (Tylenol) 650 mg PO Q4H PRN PRN Reason: Pain MILD(1-3)/Fever >100.5/RASHID Albuterol (Proventil) 2.5 mg IH Q4HRT PRN PRN Reason: Shortness Of Breath Albuterol/Ipratropium (Duoneb 0.5 Mg-3 Mg/3 Ml Soln) 1 ampul IH TIDRT ON [facility] OF [facility] Last Admin: 09/08/16 13:08 Dose: Not Given Arformoterol Tartrate (Brovana Nebu) 15 mcg IH Q12HRT ON [facility] OF [facility] Budesonide (Pulmicort) 0.5 mg IH Q12HRT [facility] OF [facility] Famotidine (Pepcid) 40 mg PO QHS [facility] OF [facility] Last Admin: 09/07/16 22:54 Dose: 40 mg Guaifenesin (Mucinex Er) 600 mg PO BID [facility] Last Admin: 09/08/16 11:11 Dose: 600 mg Ceftriaxone Sodium (Rocephin/Ns 1 Gm/50 Ml) 1 gm in 50 mls @ 100 mls/hr IV Q24HR ON [facility] OF [facility] PRN Reason: Protocol Last Admin: 09/08/16 11:11 Dose: 100 mls/hr Loratadine (Claritin) 10 mg PO QDAY ON [facility] OF [facility] Methylprednisolone Sodium Succinate (Solu-Medrol) 40 mg IV Q8HR ON [facility] OF [facility] Montelukast Sodium (Singulair) 10 mg PO QHS ON [facility] OF [facility] Last Admin: 09/07/16 22:54 Dose: 10 mg Oxycodone/Acetaminophen (Percocet 5/325) 1 tab PO Q4H PRN PRN Reason: Pain, Moderate (4-6) Last Admin: 09/08/16 11:11 Dose: 1 tab Pantoprazole Sodium (Protonix) 40 mg PO BID [facility] Last Admin: 09/08/16 11:10 Dose: 40 mg Objective Vital Signs - 12hr 09/08/16 09/08/16 09/08/16 07:20 07:33 07:35 Temperature Pulse Rate [ From Monitor] Pulse Rate [ 65 100 H Posterior Bilateral] Respiratory Rate Respiratory 16 16 Rate [Posterior Bilateral] Blood Pressure [Right Arm] O2 Sat by Pulse 100 Oximetry 09/08/16 09/08/16 09/08/16 08:00 11:07 11:10 Temperature 97.5 F L Pulse Rate [ 75 From Monitor] Pulse Rate [ 84 Posterior Bilateral] Respiratory 22 Rate Respiratory 20 Rate [Posterior Bilateral] Blood Pressure 139/83 [Right Arm] O2 Sat by Pulse 100 99 Oximetry 09/08/16 11:15 Temperature Pulse Rate [ From Monitor] Pulse Rate [ 78 Posterior Bilateral] Respiratory Rate Respiratory 20 Rate [Posterior Bilateral] Blood Pressure [Right Arm] O2 Sat by Pulse Oximetry Constitutional: no acute distress, alert Eyes: non-icteric ENT: oropharynx moist Neck: supple Effort: normal Ascultation: Bilateral: wheezes Cardiovascular: regular rate and rhythm (no mrg) Gastrointestinal: normoactive bowel sounds, soft, non-tender, non-distended Integumentary: normal, rash Extremities: no cyanosis, no edema, pink and warm Neurologic: normal mental status, non-focal exam, pupils equal and round, CN II- XII normal Psychiatric: mood appropriate, affect normal CBC and BMP: 09/07/16 04:15 09/07/16 04:15 Abnormal lab findings: Abnormal Labs 09/07/16 09/07/16 04:15 04:15 MCV 96 H Lymph % (Auto) 7.5 L Lymph # 0.6 L Seg Neutrophils % 89.5 H Glucose 139 H Chest x-ray: report reviewed, image reviewed (clear)
[2016-09-08] MEDS: CLARITIN PO SCH (17:34)
[2016-09-08] MEDS: SINGULAIR PO SCH (21:53)
[2016-09-08] MEDS: PEPCID PO SCH (21:53)
[2016-09-09] MEDS: BROVANA NEBU IH SCH ×2 (07:03→19:23)
[2016-09-09] MEDS: DUONEB 0.5 MG-3 MG/3 ML SOLN IH SCH ×3 (07:03→19:22)
[2016-09-09] MEDS: PULMICORT IH SCH ×2 (07:03→19:22)
--- NOTE | 2016-09-09 09:33 | Progress Note ---
Assessment and Plan Assessment and plan: 1. Severe persistent refractory acute asthma exacerbation. Taper IV Solu- Medrol. Continue Pulmicort, Brovana and Singulair. Pulmonary following. 2. Acute bronchitis. Continue IV antibiotics. 3. Allergic rhinitis. Patient started on Claritin. 3. GERD. Continue Protonix twice a day. History Interval history: 46-year-old male admitted with acute asthma exacerbation and acute bronchitis. No new issues overnight. Hospitalist Physical - Constitutional Vitals: Temp Pulse Resp BP Pulse Ox 98.0 F 72 18 145/97 98 09/09/16 08:00 09/09/16 08:00 09/09/16 08:00 09/09/16 08:00 09/09/16 08:00 General appearance: Present: no acute distress, well-nourished - EENT Eyes: Present: PERRL, EOM intact ENT: hearing intact, clear oral mucosa, dentition normal - Neck Neck: Present: supple, normal ROM - Respiratory Respiratory effort: normal Respiratory: bilateral: diminished, wheezing (insp and exp) - Cardiovascular Rhythm: regular Heart Sounds: Present: S1 & S2. Absent: gallop, rub - Extremities Extremities: no ischemia, No edema, Full ROM - Abdominal General gastrointestinal: soft, non-tender, non-distended, normal bowel sounds - Integumentary Integumentary: Present: clear, warm, dry - Neurologic Neurologic: CNII-XII intact, moves all extremities Results - Labs CBC & Chem 7: 09/07/16 04:15 09/07/16 04:15 Labs: Laboratory Last Values WBC 8.5 K/mm3 (4.5-11.0) 09/07/16 04:15 RBC 4.37 M/mm3 (3.65-5.03) 09/07/16 04:15 Hgb 14.2 gm/dl (11.8-15.2) 09/07/16 04:15 Hct 42.0 % (35.5-45.6) 09/07/16 04:15 MCV 96 fl (84-94) H 09/07/16 04:15 MCH 32 pg (28-32) 09/07/16 04:15 MCHC 34 % (32-34) 09/07/16 04:15 RDW 15.2 % (13.2-15.2) 09/07/16 04:15 Plt Count 157 K/mm3 (140-440) 09/07/16 04:15 Lymph % (Auto) 7.5 % (13.4-35.0) L 09/07/16 04:15 [place] % (Auto) 3.0 % (0.0-7.3) 09/07/16 04:15 Eos % (Auto) 0.0 % (0.0-4.3) 09/07/16 04:15 Baso % (Auto) 0.0 % (0.0-1.8) 09/07/16 04:15 Lymph # 0.6 K/mm3 (1.2-5.4) L 09/07/16 04:15 [place] # 0.3 K/mm3 (0.0-0.8) 09/07/16 04:15 Eos # 0.0 K/mm3 (0.0-0.4) 09/07/16 04:15 Baso # 0.0 K/mm3 (0.0-0.1) 09/07/16 04:15 Seg Neutrophils % 89.5 % (40.0-70.0) H 09/07/16 04:15 Seg Neutrophils # 7.6 K/mm3 (1.8-7.7) 09/07/16 04:15 Sodium 137 mmol/L (137-145) 09/07/16 04:15 Potassium 4.2 mmol/L (3.6-5.0) 09/07/16 04:15 Chloride 98.5 mmol/L (98-107) 09/07/16 04:15 Carbon Dioxide 23 mmol/L (22-30) 09/07/16 04:15 Anion Gap 20 mmol/L 09/07/16 04:15 BUN 16 mg/dL (9-20) 09/07/16 04:15 Creatinine 0.9 mg/dL (0.8-1.5) 09/07/16 04:15 Estimated GFR > 60 ml/min 09/07/16 04:15 BUN/Creatinine Ratio 17.77 % 09/07/16 04:15 Glucose 139 mg/dL (75-100) H 09/07/16 04:15 Calcium 8.9 mg/dL (8.4-10.2) 09/07/16 04:15 Troponin T < 0.010 ng/mL (0.00-0.029) 09/04/16 08:25
[2016-09-09] MEDS: ROCEPHIN/NS 1 GM/50 ML 1 GM/50 ML BAG IV SCH (10:10)
[2016-09-09] MEDS: PROTONIX PO SCH ×2 (10:11→21:54)
[2016-09-09] MEDS: CLARITIN PO SCH (10:11)
[2016-09-09] MEDS: MUCINEX ER PO SCH ×2 (10:11→21:52)
--- NOTE | 2016-09-09 13:47 | Progress Note ---
Assessment and Plan Imp: 1. Severe persistent asthma with acute exac. 2. Acute respiratory distress, better 3. Allergic rhinitis 4. GERD 5. Acute bronchitis Rec: 1. Cont. ABX 2. Cont. Solumedrol; on Prednisone chronically 3. Pulmicort/Brovana/Singulair 4. Claritin 5. PPI 6. Outpatient PFTs needed Plan of care reviewed w/ pt., he understands/agrees Subjective Date of service: 09/09/16 Principal diagnosis: Asthma exac. Interval history: Still with SOB/wheezing above baseline. + Cough, no sputum. No new complaints. Active Medications Acetaminophen (Tylenol) 650 mg PO Q4H PRN PRN Reason: Pain MILD(1-3)/Fever >100.5/RASHID Albuterol (Proventil) 2.5 mg IH Q4HRT PRN PRN Reason: Shortness Of Breath Albuterol/Ipratropium (Duoneb 0.5 Mg-3 Mg/3 Ml Soln) 1 ampul IH TIDRT [facility] Last Admin: 09/09/16 13:18 Dose: 1 ampul Arformoterol Tartrate (Brovana Nebu) 15 mcg IH Q12HRT [facility] Last Admin: 09/09/16 07:03 Dose: Not Given Budesonide (Pulmicort) 0.5 mg IH Q12HRT [facility] Last Admin: 09/09/16 07:03 Dose: 0.5 mg Famotidine (Pepcid) 40 mg PO QHS [facility] Last Admin: 09/08/16 21:53 Dose: 40 mg Guaifenesin (Mucinex Er) 600 mg PO BID [facility] Last Admin: 09/09/16 10:11 Dose: 600 mg Ceftriaxone Sodium (Rocephin/Ns 1 Gm/50 Ml) 1 gm in 50 mls @ 100 mls/hr IV Q24HR [facility] PRN Reason: Protocol Last Admin: 09/09/16 10:10 Dose: 100 mls/hr Loratadine (Claritin) 10 mg PO QDAY [facility] Last Admin: 09/09/16 10:11 Dose: 10 mg Methylprednisolone Sodium Succinate (Solu-Medrol) 40 mg IV Q8HR [facility] Last Admin: 09/09/16 05:23 Dose: 40 mg Montelukast Sodium (Singulair) 10 mg PO QHS [facility] Last Admin: 09/08/16 21:53 Dose: 10 mg Oxycodone/Acetaminophen (Percocet 5/325) 1 tab PO Q4H PRN PRN Reason: Pain, Moderate (4-6) Last Admin: 09/08/16 21:53 Dose: 1 tab Pantoprazole Sodium (Protonix) 40 mg PO BID [facility] Last Admin: 09/09/16 10:11 Dose: 40 mg Objective Vital Signs - 12hr 09/09/16 09/09/16 09/09/16 07:03 07:04 07:14 Temperature Pulse Rate [ From Monitor] Pulse Rate [ 63 78 Posterior Bilateral] Respiratory Rate Respiratory 16 16 Rate [Posterior Bilateral] Blood Pressure [Right Arm] O2 Sat by Pulse 100 Oximetry 09/09/16 09/09/16 09/09/16 08:00 13:19 13:28 Temperature 98.0 F Pulse Rate [ 72 From Monitor] Pulse Rate [ 89 90 Posterior Bilateral] Respiratory 18 Rate Respiratory 16 16 Rate [Posterior Bilateral] Blood Pressure 145/97 [Right Arm] O2 Sat by Pulse 98 Oximetry Constitutional: no acute distress, alert Eyes: non-icteric ENT: oropharynx moist Neck: supple Effort: normal Ascultation: Bilateral: wheezes Cardiovascular: regular rate and rhythm (no mrg) Gastrointestinal: normoactive bowel sounds, soft, non-tender, non-distended Integumentary: normal, rash Extremities: no cyanosis, no edema, pink and warm Neurologic: normal mental status, non-focal exam, pupils equal and round, CN II- XII normal Psychiatric: mood appropriate, affect normal CBC and BMP: 09/07/16 04:15 09/07/16 04:15 Abnormal lab findings: Abnormal Labs 09/07/16 09/07/16 04:15 04:15 MCV 96 H Lymph % (Auto) 7.5 L Lymph # 0.6 L Seg Neutrophils % 89.5 H Glucose 139 H Chest x-ray: report reviewed, image reviewed
[2016-09-09] MEDS: SINGULAIR PO SCH (21:52)
[2016-09-09] MEDS: PEPCID PO SCH (21:53)
[2016-09-10] MEDS: PERCOCET 5/325 PO PRN (01:38)
[2016-09-10] MEDS: PULMICORT IH SCH ×2 (07:15→20:19)
[2016-09-10] MEDS: BROVANA NEBU IH SCH ×2 (07:16→20:19)
[2016-09-10] MEDS: DUONEB 0.5 MG-3 MG/3 ML SOLN IH SCH ×3 (07:16→20:20)
--- NOTE | 2016-09-10 10:18 | Progress Note ---
Assessment and Plan Assessment and plan: 1. Severe persistent refractory acute asthma exacerbation. Taper IV Solu- Medrol. Continue Pulmicort, Brovana and Singulair. Pulmonary following. 2. Acute bronchitis. Continue IV antibiotics. 3. Allergic rhinitis. Patient started on Claritin. 3. GERD. Continue Protonix twice a day. History Interval history: 46-year-old male admitted with acute asthma exacerbation and acute bronchitis. No new issues overnight. Patient complains of dyspnea with minimal exertion. Hospitalist Physical - Constitutional Vitals: Temp Pulse Resp BP Pulse Ox 97.5 F L 70 20 136/93 97 09/10/16 08:25 09/10/16 08:25 09/10/16 08:25 09/10/16 08:25 09/10/16 08:25 General appearance: Present: no acute distress, well-nourished - EENT Eyes: Present: PERRL, EOM intact ENT: hearing intact, clear oral mucosa, dentition normal - Neck Neck: Present: supple, normal ROM - Respiratory Respiratory effort: normal Respiratory: bilateral: wheezing - Cardiovascular Rhythm: regular Heart Sounds: Present: S1 & S2. Absent: gallop, rub - Extremities Extremities: no ischemia, No edema, Full ROM - Abdominal General gastrointestinal: soft, non-tender, non-distended, normal bowel sounds - Integumentary Integumentary: Present: clear, warm, dry - Neurologic Neurologic: CNII-XII intact, moves all extremities Results - Labs CBC & Chem 7: 09/07/16 04:15 09/07/16 04:15 Labs: Laboratory Last Values WBC 8.5 K/mm3 (4.5-11.0) 09/07/16 04:15 RBC 4.37 M/mm3 (3.65-5.03) 09/07/16 04:15 Hgb 14.2 gm/dl (11.8-15.2) 09/07/16 04:15 Hct 42.0 % (35.5-45.6) 09/07/16 04:15 MCV 96 fl (84-94) H 09/07/16 04:15 MCH 32 pg (28-32) 09/07/16 04:15 MCHC 34 % (32-34) 09/07/16 04:15 RDW 15.2 % (13.2-15.2) 09/07/16 04:15 Plt Count 157 K/mm3 (140-440) 09/07/16 04:15 Lymph % (Auto) 7.5 % (13.4-35.0) L 09/07/16 04:15 [place] % (Auto) 3.0 % (0.0-7.3) 09/07/16 04:15 Eos % (Auto) 0.0 % (0.0-4.3) 09/07/16 04:15 Baso % (Auto) 0.0 % (0.0-1.8) 09/07/16 04:15 Lymph # 0.6 K/mm3 (1.2-5.4) L 09/07/16 04:15 [place] # 0.3 K/mm3 (0.0-0.8) 09/07/16 04:15 Eos # 0.0 K/mm3 (0.0-0.4) 09/07/16 04:15 Baso # 0.0 K/mm3 (0.0-0.1) 09/07/16 04:15 Seg Neutrophils % 89.5 % (40.0-70.0) H 09/07/16 04:15 Seg Neutrophils # 7.6 K/mm3 (1.8-7.7) 09/07/16 04:15 Sodium 137 mmol/L (137-145) 09/07/16 04:15 Potassium 4.2 mmol/L (3.6-5.0) 09/07/16 04:15 Chloride 98.5 mmol/L (98-107) 09/07/16 04:15 Carbon Dioxide 23 mmol/L (22-30) 09/07/16 04:15 Anion Gap 20 mmol/L 09/07/16 04:15 BUN 16 mg/dL (9-20) 09/07/16 04:15 Creatinine 0.9 mg/dL (0.8-1.5) 09/07/16 04:15 Estimated GFR > 60 ml/min 09/07/16 04:15 BUN/Creatinine Ratio 17.77 % 09/07/16 04:15 Glucose 139 mg/dL (75-100) H 09/07/16 04:15 Calcium 8.9 mg/dL (8.4-10.2) 09/07/16 04:15 Troponin T < 0.010 ng/mL (0.00-0.029) 09/04/16 08:25
[2016-09-10] MEDS: PROTONIX PO SCH ×2 (10:50→22:00)
[2016-09-10] MEDS: MUCINEX ER PO SCH ×2 (10:50→21:23)
[2016-09-10] MEDS: CLARITIN PO SCH (10:50)
[2016-09-10] MEDS: ROCEPHIN/NS 1 GM/50 ML 1 GM/50 ML BAG IV SCH (10:51)
--- NOTE | 2016-09-10 12:31 | Progress Note ---
Assessment and Plan Imp: 1. Severe persistent asthma with acute exac. 2. Acute respiratory distress, better 3. Allergic rhinitis 4. GERD 5. Acute bronchitis Rec: 1. Cont. ABX 2. Cont. Solumedrol next 24 hours; on Prednisone chronically 3. Pulmicort/Brovana/Singulair 4. Claritin 5. PPI 6. Outpatient PFTs needed 7. Hopeful d/c soon; seems to be improving slowly Plan of care reviewed w/ pt., he understands/agrees Subjective Date of service: 09/10/16 Principal diagnosis: Asthma exac. Interval history: Still with SOB/wheezing above baseline, but some improvement today. + Cough. Able to cough up some yellow sputum today. Sputum seems to be loosening. No new complaints. Active Medications Acetaminophen (Tylenol) 650 mg PO Q4H PRN PRN Reason: Pain MILD(1-3)/Fever >100.5/RASHID Albuterol (Proventil) 2.5 mg IH Q4HRT PRN PRN Reason: Shortness Of Breath Albuterol/Ipratropium (Duoneb 0.5 Mg-3 Mg/3 Ml Soln) 1 ampul IH TIDRT [facility] Last Admin: 09/10/16 07:16 Dose: Not Given Arformoterol Tartrate (Brovana Nebu) 15 mcg IH Q12HRT [facility] Last Admin: 09/10/16 07:16 Dose: 15 mcg Budesonide (Pulmicort) 0.5 mg IH Q12HRT [facility] Last Admin: 09/10/16 07:15 Dose: 0.5 mg Famotidine (Pepcid) 40 mg PO QHS [facility] Last Admin: 09/09/16 21:53 Dose: 40 mg Guaifenesin (Mucinex Er) 600 mg PO BID [facility] Last Admin: 09/10/16 10:50 Dose: 600 mg Ceftriaxone Sodium (Rocephin/Ns 1 Gm/50 Ml) 1 gm in 50 mls @ 100 mls/hr IV Q24HR [facility] PRN Reason: Protocol Last Admin: 09/10/16 10:51 Dose: 100 mls/hr Loratadine (Claritin) 10 mg PO QDAY [facility] Last Admin: 09/10/16 10:50 Dose: 10 mg Methylprednisolone Sodium Succinate (Solu-Medrol) 40 mg IV Q8HR [facility] Last Admin: 09/10/16 05:09 Dose: 40 mg Montelukast Sodium (Singulair) 10 mg PO QHS [facility] Last Admin: 09/09/16 21:52 Dose: 10 mg Oxycodone/Acetaminophen (Percocet 5/325) 1 tab PO Q4H PRN PRN Reason: Pain, Moderate (4-6) Last Admin: 09/10/16 01:38 Dose: 1 tab Pantoprazole Sodium (Protonix) 40 mg PO BID [facility] Last Admin: 09/10/16 10:50 Dose: 40 mg Objective Vital Signs - 12hr 09/10/16 09/10/16 09/10/16 01:38 07:18 07:29 Temperature Pulse Rate [ From Monitor] Pulse Rate [ 71 74 Posterior Bilateral] Respiratory 18 Rate Respiratory 18 18 Rate [Posterior Bilateral] Blood Pressure [Right Arm] O2 Sat by Pulse 96 Oximetry 09/10/16 08:25 Temperature 97.5 F L Pulse Rate [ 70 From Monitor] Pulse Rate [ Posterior Bilateral] Respiratory 20 Rate Respiratory Rate [Posterior Bilateral] Blood Pressure 136/93 [Right Arm] O2 Sat by Pulse 97 Oximetry Constitutional: no acute distress, alert Eyes: non-icteric ENT: oropharynx moist Neck: supple Effort: normal Ascultation: Bilateral: wheezes (better) Cardiovascular: regular rate and rhythm (no mrg) Gastrointestinal: normoactive bowel sounds, soft, non-tender, non-distended Integumentary: normal, rash Extremities: no cyanosis, no edema, pink and warm Neurologic: normal mental status, non-focal exam, pupils equal and round, CN II- XII normal Psychiatric: mood appropriate, affect normal CBC and BMP: 09/07/16 04:15 09/07/16 04:15 Abnormal lab findings: Abnormal Labs 09/07/16 09/07/16 04:15 04:15 MCV 96 H Lymph % (Auto) 7.5 L Lymph # 0.6 L Seg Neutrophils % 89.5 H Glucose 139 H Chest x-ray: report reviewed, image reviewed
[2016-09-10] MEDS: SINGULAIR PO SCH (21:23)
[2016-09-10] MEDS: PEPCID PO SCH (21:25)
[2016-09-11] MEDS: PULMICORT IH SCH ×2 (07:28→19:55)
[2016-09-11] MEDS: BROVANA NEBU IH SCH ×2 (07:28→19:55)
[2016-09-11] MEDS: DUONEB 0.5 MG-3 MG/3 ML SOLN IH SCH ×3 (07:29→20:51)
[2016-09-11] MEDS: PROTONIX PO SCH ×2 (09:56→21:03)
[2016-09-11] MEDS: MUCINEX ER PO SCH ×2 (09:56→21:03)
[2016-09-11] MEDS: CLARITIN PO SCH (09:56)
[2016-09-11] MEDS: ROCEPHIN/NS 1 GM/50 ML 1 GM/50 ML BAG IV SCH (09:58)
--- NOTE | 2016-09-11 10:13 | Progress Note ---
Assessment and Plan Assessment and plan: 1. Severe persistent refractory acute asthma exacerbation. Taper IV Solu- Medrol. Continue Pulmicort, Brovana and Singulair. Pulmonary following. 2. Acute bronchitis. Continue IV antibiotics. 3. Allergic rhinitis. Patient started on Claritin. 4. GERD. Continue Protonix twice a day. 5. Disposition. Anticipate discharge in a.m. History Interval history: 46-year-old male admitted with acute asthma exacerbation and acute bronchitis. No new issues overnight. Patient complains of dyspnea with exertion but improved. Hospitalist Physical - Constitutional Vitals: Temp Pulse Resp BP Pulse Ox 98.1 F 69 20 147/96 97 09/11/16 07:10 09/11/16 07:10 09/11/16 07:10 09/11/16 07:10 09/10/16 22:00 General appearance: Present: no acute distress, well-nourished - EENT Eyes: Present: PERRL, EOM intact ENT: hearing intact, clear oral mucosa, dentition normal - Neck Neck: Present: supple, normal ROM - Respiratory Respiratory effort: normal Respiratory: bilateral: diminished, wheezing - Cardiovascular Rhythm: regular Heart Sounds: Present: S1 & S2. Absent: gallop, rub - Extremities Extremities: no ischemia, No edema, Full ROM - Abdominal General gastrointestinal: soft, non-tender, non-distended, normal bowel sounds - Integumentary Integumentary: Present: clear, warm, dry - Neurologic Neurologic: CNII-XII intact, moves all extremities Results - Labs CBC & Chem 7: 09/07/16 04:15 09/07/16 04:15 Labs: Laboratory Last Values WBC 8.5 K/mm3 (4.5-11.0) 09/07/16 04:15 RBC 4.37 M/mm3 (3.65-5.03) 09/07/16 04:15 Hgb 14.2 gm/dl (11.8-15.2) 09/07/16 04:15 Hct 42.0 % (35.5-45.6) 09/07/16 04:15 MCV 96 fl (84-94) H 09/07/16 04:15 MCH 32 pg (28-32) 09/07/16 04:15 MCHC 34 % (32-34) 09/07/16 04:15 RDW 15.2 % (13.2-15.2) 09/07/16 04:15 Plt Count 157 K/mm3 (140-440) 09/07/16 04:15 Lymph % (Auto) 7.5 % (13.4-35.0) L 09/07/16 04:15 [place] % (Auto) 3.0 % (0.0-7.3) 09/07/16 04:15 Eos % (Auto) 0.0 % (0.0-4.3) 09/07/16 04:15 Baso % (Auto) 0.0 % (0.0-1.8) 09/07/16 04:15 Lymph # 0.6 K/mm3 (1.2-5.4) L 09/07/16 04:15 [place] # 0.3 K/mm3 (0.0-0.8) 09/07/16 04:15 Eos # 0.0 K/mm3 (0.0-0.4) 09/07/16 04:15 Baso # 0.0 K/mm3 (0.0-0.1) 09/07/16 04:15 Seg Neutrophils % 89.5 % (40.0-70.0) H 09/07/16 04:15 Seg Neutrophils # 7.6 K/mm3 (1.8-7.7) 09/07/16 04:15 Sodium 137 mmol/L (137-145) 09/07/16 04:15 Potassium 4.2 mmol/L (3.6-5.0) 09/07/16 04:15 Chloride 98.5 mmol/L (98-107) 09/07/16 04:15 Carbon Dioxide 23 mmol/L (22-30) 09/07/16 04:15 Anion Gap 20 mmol/L 09/07/16 04:15 BUN 16 mg/dL (9-20) 09/07/16 04:15 Creatinine 0.9 mg/dL (0.8-1.5) 09/07/16 04:15 Estimated GFR > 60 ml/min 09/07/16 04:15 BUN/Creatinine Ratio 17.77 % 09/07/16 04:15 Glucose 139 mg/dL (75-100) H 09/07/16 04:15 Calcium 8.9 mg/dL (8.4-10.2) 09/07/16 04:15 Troponin T < 0.010 ng/mL (0.00-0.029) 09/04/16 08:25
--- NOTE | 2016-09-11 13:19 | Progress Note ---
Assessment and Plan Imp: 1. Severe persistent asthma with acute exac. 2. Acute respiratory distress, better 3. Allergic rhinitis 4. GERD 5. Acute bronchitis Rec: 1. Cont. ABX x ~ 7 days 2. Cont. Solumedrol next 24 hours; on Prednisone chronically 3. Pulmicort/Brovana/Singulair 4. Claritin 5. PPI 6. Outpatient PFTs needed 7. Hopeful d/c soon; seems to be improving slowly Plan of care reviewed w/ pt., he understands/agrees Subjective Date of service: 09/11/16 Principal diagnosis: Asthma exac. Interval history: Still with SOB/wheezing above baseline, but improved. + Cough. Able to cough up some yellow sputum today. Sputum seems to be loosening. No new complaints. Active Medications Acetaminophen (Tylenol) 650 mg PO Q4H PRN PRN Reason: Pain MILD(1-3)/Fever >100.5/RASHID Albuterol (Proventil) 2.5 mg IH Q4HRT PRN PRN Reason: Shortness Of Breath Albuterol/Ipratropium (Duoneb 0.5 Mg-3 Mg/3 Ml Soln) 1 ampul IH TIDRT [facility] Last Admin: 09/11/16 07:29 Dose: Not Given Arformoterol Tartrate (Brovana Nebu) 15 mcg IH Q12HRT [facility] Last Admin: 09/11/16 07:28 Dose: 15 mcg Budesonide (Pulmicort) 0.5 mg IH Q12HRT [facility] Last Admin: 09/11/16 07:28 Dose: 0.5 mg Guaifenesin (Mucinex Er) 600 mg PO BID [facility] Last Admin: 09/11/16 09:56 Dose: 600 mg Ceftriaxone Sodium (Rocephin/Ns 1 Gm/50 Ml) 1 gm in 50 mls @ 100 mls/hr IV Q24HR [facility] PRN Reason: Protocol Last Admin: 09/11/16 09:58 Dose: 100 mls/hr Loratadine (Claritin) 10 mg PO QDAY [facility] Last Admin: 09/11/16 09:56 Dose: 10 mg Methylprednisolone Sodium Succinate (Solu-Medrol) 40 mg IV Q8HR [facility] Last Admin: 09/11/16 05:44 Dose: 40 mg Montelukast Sodium (Singulair) 10 mg PO QHS [facility] Last Admin: 04/05/17 21:23 Dose: 10 mg Oxycodone/Acetaminophen (Percocet 5/325) 1 tab PO Q4H PRN PRN Reason: Pain, Moderate (4-6) Last Admin: 09/10/16 01:38 Dose: 1 tab Pantoprazole Sodium (Protonix) 40 mg PO BID [facility] Last Admin: 09/11/16 09:56 Dose: 40 mg Objective Vital Signs - 12hr 09/11/16 09/11/16 09/11/16 07:10 07:28 07:38 Temperature 98.1 F Pulse Rate [ 67 72 Anterior Bilateral Throughout] Pulse Rate [ 69 From Monitor] Respiratory 20 Rate Respiratory 20 20 Rate [Anterior Bilateral Throughout] Blood Pressure 147/96 [Right Arm] Constitutional: no acute distress, alert Eyes: non-icteric ENT: oropharynx moist Neck: supple Effort: normal Ascultation: Bilateral: wheezes (better) Cardiovascular: regular rate and rhythm (no mrg) Gastrointestinal: normoactive bowel sounds, soft, non-tender, non-distended Integumentary: normal, rash Extremities: no cyanosis, no edema, pink and warm Neurologic: normal mental status, non-focal exam, pupils equal and round, CN II- XII normal Psychiatric: mood appropriate, affect normal CBC and BMP: 09/07/16 04:15 09/07/16 04:15 Abnormal lab findings: Abnormal Labs 09/07/16 09/07/16 04:15 04:15 MCV 96 H Lymph % (Auto) 7.5 L Lymph # 0.6 L Seg Neutrophils % 89.5 H Glucose 139 H Chest x-ray: report reviewed, image reviewed
[2016-09-11] MEDS: SINGULAIR PO SCH (21:03)
[2016-09-12] MEDS: BROVANA NEBU IH SCH ×2 (07:41→19:44)
[2016-09-12] MEDS: DUONEB 0.5 MG-3 MG/3 ML SOLN IH SCH ×3 (07:41→20:46)
[2016-09-12] MEDS: PULMICORT IH SCH ×2 (07:41→19:44)
[2016-09-12] MEDS: ROCEPHIN/NS 1 GM/50 ML 1 GM/50 ML BAG IV SCH (09:36)
[2016-09-12] MEDS: CLARITIN PO SCH (09:37)
[2016-09-12] MEDS: MUCINEX ER PO SCH ×2 (09:37→21:16)
[2016-09-12] MEDS: PROTONIX PO SCH ×2 (09:37→21:23)
--- NOTE | 2016-09-12 11:49 | Progress Note ---
Assessment and Plan Assessment and plan: 1. Severe persistent refractory acute asthma exacerbation. Taper IV Solu- Medro per Pulmonary. Continue Pulmicort, Brovana and Singulair. Pulmonary following. 2. Acute bronchitis. Continue IV antibiotics. 3. Allergic rhinitis. Patient started on Claritin. 4. GERD. Continue Protonix twice a day. 5. Disposition. Anticipate discharge in a.m. History Interval history: 46-year-old male admitted with acute asthma exacerbation and acute bronchitis. No new issues overnight. Patient complains of dyspnea with exertion but improved. Hospitalist Physical - Constitutional Vitals: Temp Pulse Resp BP Pulse Ox 97.7 F 82 18 150/97 98 09/12/16 07:23 09/12/16 07:55 09/12/16 07:55 09/12/16 07:23 09/12/16 07:23 General appearance: Present: no acute distress, well-nourished - EENT Eyes: Present: PERRL, EOM intact ENT: hearing intact, clear oral mucosa, dentition normal - Neck Neck: Present: supple, normal ROM - Respiratory Respiratory effort: normal Respiratory: bilateral: diminished, rhonchi, wheezing - Cardiovascular Rhythm: regular Heart Sounds: Present: S1 & S2. Absent: gallop, rub - Extremities Extremities: no ischemia, No edema, Full ROM - Abdominal General gastrointestinal: soft, non-tender, non-distended, normal bowel sounds - Integumentary Integumentary: Present: clear, warm, dry - Neurologic Neurologic: CNII-XII intact, moves all extremities Results - Labs CBC & Chem 7: 09/07/16 04:15 09/07/16 04:15 Labs: Laboratory Last Values WBC 8.5 K/mm3 (4.5-11.0) 09/07/16 04:15 RBC 4.37 M/mm3 (3.65-5.03) 09/07/16 04:15 Hgb 14.2 gm/dl (11.8-15.2) 09/07/16 04:15 Hct 42.0 % (35.5-45.6) 09/07/16 04:15 MCV 96 fl (84-94) H 09/07/16 04:15 MCH 32 pg (28-32) 09/07/16 04:15 MCHC 34 % (32-34) 09/07/16 04:15 RDW 15.2 % (13.2-15.2) 09/07/16 04:15 Plt Count 157 K/mm3 (140-440) 09/07/16 04:15 Lymph % (Auto) 7.5 % (13.4-35.0) L 09/07/16 04:15 [place] % (Auto) 3.0 % (0.0-7.3) 09/07/16 04:15 Eos % (Auto) 0.0 % (0.0-4.3) 09/07/16 04:15 Baso % (Auto) 0.0 % (0.0-1.8) 09/07/16 04:15 Lymph # 0.6 K/mm3 (1.2-5.4) L 09/07/16 04:15 [place] # 0.3 K/mm3 (0.0-0.8) 09/07/16 04:15 Eos # 0.0 K/mm3 (0.0-0.4) 09/07/16 04:15 Baso # 0.0 K/mm3 (0.0-0.1) 09/07/16 04:15 Seg Neutrophils % 89.5 % (40.0-70.0) H 09/07/16 04:15 Seg Neutrophils # 7.6 K/mm3 (1.8-7.7) 09/07/16 04:15 Sodium 137 mmol/L (137-145) 09/07/16 04:15 Potassium 4.2 mmol/L (3.6-5.0) 09/07/16 04:15 Chloride 98.5 mmol/L (98-107) 09/07/16 04:15 Carbon Dioxide 23 mmol/L (22-30) 09/07/16 04:15 Anion Gap 20 mmol/L 09/07/16 04:15 BUN 16 mg/dL (9-20) 09/07/16 04:15 Creatinine 0.9 mg/dL (0.8-1.5) 09/07/16 04:15 Estimated GFR > 60 ml/min 09/07/16 04:15 BUN/Creatinine Ratio 17.77 % 09/07/16 04:15 Glucose 139 mg/dL (75-100) H 09/07/16 04:15 Calcium 8.9 mg/dL (8.4-10.2) 09/07/16 04:15 Troponin T < 0.010 ng/mL (0.00-0.029) 09/04/16 08:25
--- NOTE | 2016-09-12 13:38 | Progress Note ---
Assessment and Plan Imp: 1. Severe persistent asthma with acute exac., clinically better 2. Acute respiratory distress, resolved 3. Allergic rhinitis 4. GERD 5. Acute bronchitis Rec: 1. ABX x ~ 7 days 2. D/c on Prednisone 60mg x 5 days, then 40mg x 5 days, then back to usual dose of 20mg daily 3. Resume Singulair, Advair 500, Claritin at d/c 4. PPI 5. Outpatient PFTs needed 6. Believe he can be discharged pulm-piper; see #2 Plan of care reviewed w/ pt., he understands/agrees Subjective Date of service: 09/12/16 Principal diagnosis: Asthma exac. Interval history: SOB/wheezing much improved. Ambulating in room on RA. No new complaints. Active Medications Acetaminophen (Tylenol) 650 mg PO Q4H PRN PRN Reason: Pain MILD(1-3)/Fever >100.5/RASHID Albuterol (Proventil) 2.5 mg IH Q4HRT PRN PRN Reason: Shortness Of Breath Albuterol/Ipratropium (Duoneb 0.5 Mg-3 Mg/3 Ml Soln) 1 ampul IH TIDRT [facility] Last Admin: 09/12/16 13:18 Dose: 1 ampul Arformoterol Tartrate (Brovana Nebu) 15 mcg IH Q12HRT [facility] Last Admin: 09/12/16 07:41 Dose: 15 mcg Budesonide (Pulmicort) 0.5 mg IH Q12HRT [facility] Last Admin: 09/12/16 07:41 Dose: 0.5 mg Guaifenesin (Mucinex Er) 600 mg PO BID [facility] Last Admin: 09/12/16 09:37 Dose: 600 mg Ceftriaxone Sodium (Rocephin/Ns 1 Gm/50 Ml) 1 gm in 50 mls @ 100 mls/hr IV Q24HR [facility] PRN Reason: Protocol Last Admin: 09/12/16 09:36 Dose: 100 mls/hr Loratadine (Claritin) 10 mg PO QDAY [facility] Last Admin: 09/12/16 09:37 Dose: 10 mg Methylprednisolone Sodium Succinate (Solu-Medrol) 40 mg IV Q8HR [facility] Last Admin: 09/12/16 06:20 Dose: 40 mg Montelukast Sodium (Singulair) 10 mg PO QHS [facility] Last Admin: 09/11/16 21:03 Dose: 10 mg Oxycodone/Acetaminophen (Percocet 5/325) 1 tab PO Q4H PRN PRN Reason: Pain, Moderate (4-6) Last Admin: 09/10/16 01:38 Dose: 1 tab Pantoprazole Sodium (Protonix) 40 mg PO BID [facility] Last Admin: 09/12/16 09:37 Dose: 40 mg Objective Vital Signs - 12hr 09/12/16 09/12/16 09/12/16 07:23 07:45 07:55 Temperature 97.7 F Pulse Rate [ 82 82 Posterior Bilateral] Pulse Rate [ 67 Right Radial] Respiratory 20 Rate Respiratory 18 18 Rate [Posterior Bilateral] Blood Pressure 150/97 [Right Arm] O2 Sat by Pulse 98 Oximetry 09/12/16 09/12/16 13:10 13:20 Temperature Pulse Rate [ 84 85 Posterior Bilateral] Pulse Rate [ Right Radial] Respiratory Rate Respiratory 18 18 Rate [Posterior Bilateral] Blood Pressure [Right Arm] O2 Sat by Pulse Oximetry Constitutional: no acute distress, alert Eyes: non-icteric ENT: oropharynx moist Neck: supple Effort: normal Ascultation: Bilateral: wheezes (better) Cardiovascular: regular rate and rhythm (no mrg) Gastrointestinal: normoactive bowel sounds, soft, non-tender, non-distended Integumentary: normal, rash Extremities: no cyanosis, no edema, pink and warm Neurologic: normal mental status, non-focal exam, pupils equal and round, CN II- XII normal Psychiatric: mood appropriate, affect normal CBC and BMP: 09/07/16 04:15 09/07/16 04:15 Abnormal lab findings: Abnormal Labs 09/07/16 09/07/16 04:15 04:15 MCV 96 H Lymph % (Auto) 7.5 L Lymph # 0.6 L Seg Neutrophils % 89.5 H Glucose 139 H Chest x-ray: report reviewed, image reviewed
[2016-09-12] MEDS: SINGULAIR PO SCH (21:23)
[2016-09-13] MEDS: DUONEB 0.5 MG-3 MG/3 ML SOLN IH SCH (08:21)
[2016-09-13] MEDS: BROVANA NEBU IH SCH (08:21)
[2016-09-13] MEDS: PULMICORT IH SCH (08:21)
[2016-09-13 08:34] VITALS: BP 136/88
--- NOTE | 2016-09-13 09:37 | Discharge Summary ---
Providers - Providers Date of Admission: 09/04/16 14:44 Date of discharge: 09/13/16 Attending physician: ROGER OSORIO 09/05/16 10:42 Consult to Physician [CONS] Routine Consulting Provider: BAUTISTA ARAUZ Reason For Exam: severe asthma Place consult to:: Dr. Arauz Notified:: office Phone number called:: [phone] Was contact made?: Yes If yes, spoke with:: junior Time called:: 15:03 Primary care physician: FOUNDRY MANAGER Hospitalization Reason for admission: asthma exac Condition: Stable Hospital course: Patient is a 46-year-old man with a history of severe refractory asthma on 20 mg oral steroids/day and albuterol inhaler who presented with worsening shortness of breath about not responding to outpatient therapy. He has been intubated for asthma exacerbation in the past. Patient had a prolonged hospital course given the severity of asthma. Patient was treated with IV antibiotics of Rocephin, Brovana, albuterol, Pulmicort, IV steroids and Singulair. Patient was also treated with Protonix for possible GERD related asthma. Patient was also seen by pulmonary consultation. Patient eventually stabilized and progressed back to near baseline respiratory status. Patient felt as though he was stable enough to be discharged. Dedicated discharge time 35 minutes. Disposition: DISCHARGED TO HOME OR SELFCARE Time spent for discharge: 35 - Discharge Diagnoses (1) Acute bronchitis Status: Acute Qualifiers: Bronchitis organism: B (2) Acute respiratory failure with hypoxemia Status: Acute (3) Asthma with acute exacerbation Status: Acute Qualifiers: Asthma severity: severe persistent Qualified Code(s): J45.51 - Severe persistent asthma with (acute) exacerbation (4) DVT prophylaxis Status: Acute Core Measure Documentation - Palliative Care Palliative Care/ Comfort Measures: Not Applicable - Core Measures Any of the following diagnoses?: none Exam - Constitutional Vitals: Temp Pulse Resp BP Pulse Ox 98.0 F 80 16 136/88 99 09/13/16 08:00 09/13/16 08:10 09/13/16 08:10 09/13/16 08:00 09/13/16 08:00 General appearance: Present: no acute distress, well-nourished - EENT Eyes: Present: PERRL ENT: hearing intact, clear oral mucosa - Neck Neck: Present: supple, normal ROM - Respiratory Respiratory effort: normal Respiratory: bilateral: CTA - Cardiovascular Heart Sounds: Present: S1 & S2. Absent: rub, click - Extremities Extremities: pulses symmetrical, No edema Peripheral Pulses: within normal limits - Abdominal General gastrointestinal: Present: soft, non-tender, non-distended, normal bowel sounds Male genitourinary: Present: normal - Integumentary Integumentary: Present: clear, warm, dry - Musculoskeletal Musculoskeletal: gait normal, strength equal bilaterally - Psychiatric Psychiatric: appropriate mood/affect, intact judgment & insight - Neurologic Neurologic: CNII-XII intact, moves all extremities Plan Activity: no restrictions Weight Bearing Status: Full Weight Bearing Diet: regular Follow up with: PRIMARY CARE, [Primary Care Provider] - 3-5 Days Prescriptions: ALBUTEROL NEB's [Proventil 0.083% NEBS] 2.5 mg IH Q4HRT PRN #30 nebu PRN Reason: Shortness Of Breath Arformoterol Nebu [Brovana Nebu] 15 mcg IH Q12HRT #30 ml Budesonide [Pulmicort Respules] 0.5 mg IH Q12HRT #30 nebu Cefuroxime Axetil [Ceftin] 500 mg PO Q12H #20 tablet guaiFENesin ER [Mucinex ER] 600 mg PO BID #30 tablet Loratadine [Claritin] 10 mg PO QDAY #30 tablet Montelukast [Singulair] 10 mg PO QHS #30 tablet oxyCODONE /ACETAMINOPHEN [Percocet 5/325 mg] 1 tab PO Q4H PRN #15 tablet PRN Reason: Pain, Moderate (4-6) Pantoprazole [Protonix TAB] 40 mg PO BID #60 tablet predniSONE [Deltasone] 20 mg PO QDAY #60 tablet
[2016-09-13] MEDS: CLARITIN PO SCH (11:13)
[2016-09-13] MEDS: PROTONIX PO SCH (11:14)
[2016-09-13] MEDS: MUCINEX ER PO SCH (11:14)
[2016-09-13] MEDS: ROCEPHIN/NS 1 GM/50 ML 1 GM/50 ML BAG IV SCH (11:14)
== END 2016-09-13 13:28 | disposition home or self-care (01) | DRG 189 ==
LOC: ED 07:45 → 3A 14:44
PROVIDERS: ADMIT Internal Medicine; ATTEND Hospitalist
DX: J96.01 Acute respiratory failure with hypoxia (principal); J45.51 Severe persistent asthma with (acute) exacerbation; J20.9 Acute bronchitis, unspecified; K21.9 Gastro-esophageal reflux disease without esophagitis; Z60.2 Problems related to living alone; J30.9 Allergic rhinitis, unspecified; Z88.1 Allergy status to other antibiotic agents; Z82.49 Family history of ischemic heart disease and other diseases of the circulatory system
CPT/HCPCS: 36415; 71020; 80048; 84484; 85025; 93005; 93010; 94640; 94760; 96365; 96375; J0456; J0696; J2920; J2930; J3475; J7050

== ENCOUNTER 2016-12-08 04:03 | Emergency (ER) | payer SELFPAY ==
[2016-12-08 04:50] VITALS: BP 139/105
[2016-12-08] MEDS ORDERED: DUONEB 0.5 MG-3 MG/3 ML SOLN IH ONE ×3 (04:54→09:25)
--- NOTE | 2016-12-08 07:13 | XRay Report ---
ROUTINE CHEST, TWO VIEWS: HISTORY: Difficulty in breathing. The trachea, heart, mediastinal contour, lung wen and bony thorax are unremarkable. Mild scoliosis is suspected. IMPRESSION: Unremarkable chest x-ray.
[2016-12-08] MEDS ORDERED: DELTASONE PO ONE (07:33)
--- NOTE | 2016-12-08 07:41 | Emergency Department Report ---
ED Asthma HPI - General Chief Complaint: Adult Asthma Stated Complaint: DIFFICULTY IN BREATHING Time Seen by Provider: 12/08/16 07:30 Source: patient, EMS Mode of arrival: Stretcher Limitations: No Limitations - History of Present Illness Initial Comments: Patient is a 46-year-old male with a known history of asthma who is here with complaints of worsening asthma. He states over the last 12 hours she has had increasing shortness of breath with difficulty breathing. Complains of some mild cough. Denies fevers and chills. He is on 20 mg of prednisone daily. He does not have a primary care or a book canvasser who follows him for his asthma. He was most recently treated for asthma in the hospital approximately one month ago. He has not had to be intubated recently. MD Complaint: shortness of breath, wheezing Asthma History: adult onset, history of prior ED visit Severity: moderate Associated Symptoms: dry cough Treatments Prior to Arrival: inhaled bronchodilator - Related Data Current Asthma Therapy: inhaled bronchodilator, recent oral steroid Home Medications Medication Instructions Recorded Confirmed Last Taken Albuterol Sulfate [Ventolin HFA] 2 puff IH Q4H PRN 09/04/16 09/04/16 Unknown Previous Rx's Medication Instructions Recorded Last Taken Type ALBUTEROL NEB's [Proventil 0.083% 2.5 mg IH Q4HRT PRN #30 nebu 09/13/16 Unknown Rx NEBS] Arformoterol Nebu [Brovana Nebu] 15 mcg IH Q12HRT #30 ml 09/13/16 Unknown Rx Budesonide [Pulmicort Respules] 0.5 mg IH Q12HRT #30 nebu 09/13/16 Unknown Rx Cefuroxime Axetil [Ceftin] 500 mg PO Q12H #20 tablet 09/13/16 Unknown Rx Loratadine [Claritin] 10 mg PO QDAY #30 tablet 09/13/16 Unknown Rx Montelukast [Singulair] 10 mg PO QHS #30 tablet 09/13/16 Unknown Rx Pantoprazole [Protonix TAB] 40 mg PO BID #60 tablet 09/13/16 Unknown Rx guaiFENesin ER [Mucinex ER] 600 mg PO BID #30 tablet 09/13/16 Unknown Rx oxyCODONE /ACETAMINOPHEN [Percocet 1 tab PO Q4H PRN #15 tablet 09/13/16 Unknown Rx 5/325 mg] predniSONE [Deltasone] 20 mg PO QDAY #60 tablet 09/13/16 Unknown Rx predniSONE [Deltasone] 20 mg PO QDAY #24 tab 12/08/16 Unknown Rx Allergies Allergy/AdvReac Type Severity Reaction Status Date / Time ciprofloxacin [From Cipro] Allergy Hives Verified 09/04/16 08:09 ciprofloxacin HCl Allergy Hives Verified 09/04/16 08:09 [From Cipro] ED Review of Systems ROS: Stated complaint: DIFFICULTY IN BREATHING Other details as noted in HPI Constitutional: denies: chills, fever Eyes: denies: eye pain, eye discharge, vision change ENT: denies: ear pain, throat pain Respiratory: cough, shortness of breath, SOB with exertion, SOB at rest Cardiovascular: dyspnea on exertion. denies: chest pain, palpitations, orthopnea Gastrointestinal: denies: abdominal pain, nausea, diarrhea Musculoskeletal: denies: back pain, joint swelling, arthralgia Skin: denies: rash, lesions Neurological: denies: headache, weakness, paresthesias Psychiatric: denies: anxiety, depression ED Past Medical Hx - Past Medical History Previous Medical History?: Yes Hx Hypertension: No Hx Congestive Heart Failure: No Hx Diabetes: No Hx Asthma: Yes Hx COPD: No - Surgical History Past Surgical History?: No - Social History Smoking Status: Never Smoker Substance Use Type: Alcohol - Medications Home Medications: Home Medications Medication Instructions Recorded Confirmed Last Taken Type Albuterol Sulfate [Ventolin HFA] 2 puff IH Q4H PRN 09/04/16 09/04/16 Unknown History ALBUTEROL NEB's [Proventil 0.083% 2.5 mg IH Q4HRT PRN #30 nebu 09/13/16 Unknown Rx NEBS] Arformoterol Nebu [Brovana Nebu] 15 mcg IH Q12HRT #30 ml 09/13/16 Unknown Rx Budesonide [Pulmicort Respules] 0.5 mg IH Q12HRT #30 nebu 09/13/16 Unknown Rx Cefuroxime Axetil [Ceftin] 500 mg PO Q12H #20 tablet 09/13/16 Unknown Rx Loratadine [Claritin] 10 mg PO QDAY #30 tablet 09/13/16 Unknown Rx Montelukast [Singulair] 10 mg PO QHS #30 tablet 09/13/16 Unknown Rx Pantoprazole [Protonix TAB] 40 mg PO BID #60 tablet 09/13/16 Unknown Rx guaiFENesin ER [Mucinex ER] 600 mg PO BID #30 tablet 09/13/16 Unknown Rx oxyCODONE /ACETAMINOPHEN [Percocet 1 tab PO Q4H PRN #15 tablet 09/13/16 Unknown Rx 5/325 mg] predniSONE [Deltasone] 20 mg PO QDAY #60 tablet 09/13/16 Unknown Rx predniSONE [Deltasone] 20 mg PO QDAY #24 tab 12/08/16 Unknown Rx ED Physical Exam - General Limitations: No Limitations General appearance: alert, in no apparent distress - Head Head exam: Present: atraumatic, normocephalic - Eye Eye exam: Present: normal appearance, PERRL, EOMI - ENT ENT exam: Present: mucous membranes moist - Neck Neck exam: Present: normal inspection. Absent: tenderness, meningismus, lymphadenopathy - Respiratory Respiratory exam: Present: wheezes, prolonged expiratory. Absent: respiratory distress - Cardiovascular Cardiovascular Exam: Present: regular rate, normal rhythm. Absent: systolic murmur, diastolic murmur, rubs, gallop - GI/Abdominal GI/Abdominal exam: Present: soft, normal bowel sounds - Rectal Rectal exam: Present: deferred - Extremities Exam Extremities exam: Present: normal inspection - Back Exam Back exam: Present: normal inspection. Absent: full ROM, tenderness - Neurological Exam Neurological exam: Present: alert, oriented X3 - Psychiatric Psychiatric exam: Present: normal affect, normal mood - Skin Skin exam: Present: warm, dry, intact, normal color. Absent: rash ED Course Vital Signs 12/08/16 04:41 Temperature 98.6 F Pulse Rate 81 Blood Pressure 139/105 O2 Sat by Pulse 96 Oximetry ED Medical Decision Making - EKG Data -: EKG Interpreted by Me - EKG Data 12/08/16 07:43 Normal sinus rhythm rate of 70 left axis deviation likely LVH no ST-T wave changes. - Radiology Data Radiology results: image reviewed interpreted by me: Lungs clear. No infiltrate or acute process. - Medical Decision Making Patient is a 46-year-old male with a known history of asthma currently on long- term steroid use. Likely increase patient's steroids to 60 mg a day for 10 days. His vital signs are stable in the emergency department and he does not need to be admitted. After 3 stacked nebs patient is feeling improved. He is still wheezing but his vital signs are normal. Discussed at length the patient plan to start on a prednisone taper of 60 mg for 4 days followed by 40 mg for 4 days and then back to his normal dose of 20 mg per day. I counseled him that he needs to follow up with book canvasser. Portions of this chart were dictated with dictation software. There may be dictation errors contained within this note. Critical care attestation.: If time is entered above; I have spent that time in minutes in the direct care of this critically ill patient, excluding procedure time. ED Disposition Clinical Impression: Asthma with acute exacerbation Disposition: DC-01 TO HOME OR SELFCARE Is pt being admited?: No Does the pt Need Aspirin: No Condition: Stable Instructions: Asthma (ED) Additional Instructions: Please follow up with a book canvasser as soon as possible. Prescriptions: predniSONE [Deltasone] 20 mg PO QDAY #24 tab Referrals: PRIMARY CARE, [Primary Care Provider] - 3-5 Days
== END 2016-12-08 11:02 | disposition home or self-care (01) ==
LOC: ED 04:03
DX: J45.901 Unspecified asthma with (acute) exacerbation (principal); Z88.1 Allergy status to other antibiotic agents
CPT/HCPCS: 71020; 93005; 93010; 94640; 99284; J7512